=== PATIENT | female | born 1990 | race African-American/Black ===

== ENCOUNTER 2017-09-17 15:21 | Emergency (ER) | payer SELFPAY ==
[~2017-09-17] VITALS: Ht 170.2 cm; Wt 56.8 kg
[2017-09-17] MEDS ORDERED: ACETAMINOPHEN 325 MG TABLET PO ONE (17:00)
[2017-09-17] MEDS ORDERED: ONDANSETRON HCL 4 MG TABLET PO ONE (17:00)
[2017-09-17 18:05] VITALS: BP 116/70
== END 2017-09-17 18:21 | disposition home or self-care (01) ==
LOC: EMS 15:23
DX: T40.7X1A Poisoning by cannabis (derivatives), accidental (unintentional), initial encounter (principal); R51 Headache; R11.2 Nausea with vomiting, unspecified; Y92.89 Other specified places as the place of occurrence of the external cause
CPT/HCPCS: 81025; 99283; Q0162